=== PATIENT | male | born 2000 | race Caucasian/White ===

== ENCOUNTER 2021-06-13 08:23 | Emergency (ER) | payer OTHER, SELFPAY ==
[2021-06-13 08:34] VITALS: BP 128/88; PULSE 84; RESP 16; TEMP 36.7; O2SAT 100
--- NOTE | 2021-06-13 08:41 | ED.EAR ---
HPI - Ear Problem General Chief complaint: Ear Stated complaint: Ear Pain Time Seen by Provider: 06/13/21 08:41 Source: patient Mode of arrival: ambulatory Limitations: no limitations History of Present Illness HPI Narrative: José Manuel Resendez is a 21 yo male with no PMH who comes to [facility] with right ear pain that started 3 days ago he states that it was throbbing to the night but does not hurt too badly at this moment he denies swimming he denies nausea vomiting or diarrhea, no fever. Related Data Allergies Allergy/AdvReac Type Severity Reaction Status Date / Time No Known Allergies Allergy Verified 10/14/13 14:56 Review of Systems Review of Systems: CONSTITUTIONAL: Denies fever, chills, sweats. EYES: Denies visual changes, redness, discharge. ENT: Denies rhinorrhea, congestion, sore throat, right otalgia. CARDIOVASCULAR: Denies chest pain, palpitations, edema. RESPIRATORY: Denies dyspnea, wheezing, cough GASTROINTESTINAL: Denies abdominal pain, nausea, vomiting, diarrhea. GENITOURINARY: Denies dysuria, hematuria, abnormal discharge SKIN: Denies rash or itching. NEUROLOGIC: Denies numbness, or focal weakness. PSYCHIATRIC: Denies anxiety or depression. PMFSH Past Medical History Medical History No acute medical problems Family History Family History Other Hypertension Social History Social History (Updated 06/13/21 @ 08:54 by Carolyn Tavarez CNP) Smoking status: Never smoker Alcohol intake: current Comments At time of signature, I agree with nursing past medical, surgical, social and family history. There is no relevant family history pertinent to the presenting complaint. Exam Narrative: GENERAL: This is a well-nourished, well-developed patient, in mild distress. HEAD: normocephalic, atraumatic. EYES: Sclera clear/white. Vision is grossly intact. EARS: External ears normal, auditory canals clear on L, erythema and edema on R without drainage, TMs normal without perforation. Hearing grossly intact. NOSE: External nose normal without nasal discharge, nares without redness, no rhinorrhea. THROAT: Mucous membranes moist, NECK: Neck supple, non-tender CARDIOVASCULAR: Regular rate and rhythm without murmurs, gallops, or rubs. RESPIRATORY: Clear to auscultation. Breath sounds equal bilaterally. No wheezes, rales, or rhonchi. GASTROINTESTINAL: Abdomen soft, SKIN: warm, intact with no suspicious lesions or rash, good texture and turgor. NEURO: awake, alert, and oriented to person, place and time. There were no obvious focal neurologic abnormalities. Steady gait EXTREMITIES: Normal range of motion. BACK: Nontender without deformity Course Course Emergency Course: Patient has right ear pain x2 to 3 days Based on exam started on eardrops and and Zyrtec Vital Signs Vital signs: Vital Signs Temperature 98.0 F 06/13/21 08:34 Pulse Rate 84 06/13/21 08:34 Respiratory Rate 16 06/13/21 08:34 Blood Pressure 128/88 06/13/21 08:34 Pulse Oximetry 100 06/13/21 08:34 Temperature 98.0 F 06/13/21 08:34 Pulse Rate 84 06/13/21 08:34 Respiratory Rate 16 06/13/21 08:34 Blood Pressure 128/88 06/13/21 08:34 Pulse Oximetry 100 06/13/21 08:34 Medical Decision Making Differential Diagnosis Differential Diagnosis: Otitis media versus otitis externa versus eustachian tube dysfunction Vital Signs Vital Signs: Vital Signs Temperature 98.0 F 06/13/21 08:34 Pulse Rate 84 06/13/21 08:34 Respiratory Rate 16 06/13/21 08:34 Blood Pressure 128/88 06/13/21 08:34 Pulse Oximetry 100 06/13/21 08:34 Temperature 98.0 F 06/13/21 08:34 Pulse Rate 84 06/13/21 08:34 Respiratory Rate 16 06/13/21 08:34 Blood Pressure 128/88 06/13/21 08:34 Pulse Oximetry 100 06/13/21 08:34 Critical Care Time Critical Care Time Critical Care Time: No
== END 2021-06-13 09:07 | disposition home or self-care (01) ==
PROVIDERS: Emergency Provider Nurse Practitioner
DX: H66.001 Acute suppurative otitis media without spontaneous rupture of ear drum, right ear (principal)
CPT/HCPCS: 99213; G0463

== ENCOUNTER 2021-09-11 08:22 | Emergency (ER) | payer OTHER, SELFPAY ==
[2021-09-11 08:33] VITALS: BP 140/78; PULSE 87; RESP 16; TEMP 36.3; O2SAT 99
--- NOTE | 2021-09-11 09:10 | ED.URI ---
HPI - URI/Sore Throat General Chief Complaint: Upper Respiratory Infection Stated Complaint: sore throat Time Seen by Provider: 09/11/21 09:02 Source: patient and RN notes reviewed Mode of arrival: ambulatory Limitations: no limitations History of Present Illness HPI Narrative: Patient presents today with a 3-day history of sore throat. Denies any additional symptoms. Currently rates pain 5/10 and has been taking Mucinex and ibuprofen without much relief. Pain increases with swallowing. MD elicited complaint: sore throat Related Data Home Medications Medication Instructions Recorded Confirmed No Home Medications 09/11/21 09/11/21 Allergies Allergy/AdvReac Type Severity Reaction Status Date / Time No Known Allergies Allergy Verified 09/11/21 08:38 Review of Systems Review of Systems: CONSTITUTIONAL: Denies body aches, fever, chills, or sweats. EYES: Denies visual changes, redness, or discharge. ENT: Denies rhinorrhea, congestion, or otalgia.+ Sore throat CARDIOVASCULAR: Denies chest pain, palpitations, or edema. RESPIRATORY: Denies cough or dyspnea. GASTROINTESTINAL: Denies abdominal pain, nausea, vomiting, or diarrhea. GENITOURINARY: Denies dysuria or hematuria. SKIN: Denies rash, itching, or wounds. MUSCULOSKELETAL: Denies back pain, joint pain, or myalgia. NEUROLOGIC: Denies headache, numbness, tingling, or weakness. PSYCH: Denies depression or anxiety. PMFSH Past Medical History Medical History No acute medical problems Family History Family History Other Hypertension Social History Social History Smoking status: Never smoker Alcohol intake: current Comments At time of signature, I have reviewed and agree with nursing past medical, surgical, social and family history unless otherwise noted. Please see nursing chart for further information. There is no relevant family history pertinent to the presenting complaint Exam Narrative: GENERAL: Well-appearing, well-nourished, and in no acute distress. HEAD: Normocephalic, atraumatic. EYES: EOMI. No redness or drainage. Conjunctivae normal. ENT: Mucous membranes pink and moist. Nares clear. No rhinorrhea. TMs normal bilaterally. Throat mildly erythematous and edematous without exudate. Uvula midline. NECK: Normal AROM. Supple. Bilateral anterior cervical chain lymphadenopathy. CHEST: No respiratory distress. Clear to auscultation. HEART: Regular rate and rhythm. No murmur appreciated. Normal peripheral pulses. EXTREMITIES: Normal range of motion. No edema. SKIN: Warm, dry, no rash. Capillary refill normal. Normal skin turgor. NEURO: No focal deficits. Alert and oriented x3. Gait steady. PSYCH: Normal affect. No signs of depression or anxiety. Course Vital Signs Vital signs: Vital Signs Temperature 97.4 F L 09/11/21 08:33 Pulse Rate 87 09/11/21 08:33 Respiratory Rate 16 09/11/21 08:33 Blood Pressure 140/78 09/11/21 08:33 Pulse Oximetry 99 09/11/21 08:33 Temperature 97.4 F L 09/11/21 08:33 Pulse Rate 87 09/11/21 08:33 Respiratory Rate 16 09/11/21 08:33 Blood Pressure 140/78 09/11/21 08:33 Pulse Oximetry 99 09/11/21 08:33 Reviewed. Pt has been instructed to follow up with his PCP regarding his elevated blood pressure today. MDM - URI/Sore Throat Differential Diagnosis Differential diagnosis: Likely upper respiratory infection, otitis media, viral infection, pharyngitis and other (Strep throat) Lab Data Attestation: I reviewed the patient's lab results. Labs: Strep Screen Presumptive Negative *(Reference Range: Negative)* Critical Care Time Critical Care Time Critical Care Time: No Discharge Plan Discharge Clinical Impression: Pharyngitis Qualifiers:
== END 2021-09-11 09:20 | disposition home or self-care (01) ==
PROVIDERS: Emergency Provider Nurse Practitioner
DX: J02.9 Acute pharyngitis, unspecified (principal)
CPT/HCPCS: 87081; 87880; 99213; G0463